=== PATIENT | male | born 1970 | race Caucasian/White ===

== ENCOUNTER 2020-06-23 21:07 | Emergency (ER) | payer OTHER ==
[~2020-06-23] VITALS: Ht 185.4 cm; Wt 112.0 kg
[2020-06-23] MEDS ORDERED: BACTRIM DS TAB1 EACH PO (21:51)
== END 2020-06-23 22:15 | disposition home or self-care (01) ==
LOC: ED 21:07
DX: Q82.8 Other specified congenital malformations of skin (principal); I10 Essential (primary) hypertension; E11.9 Type 2 diabetes mellitus without complications; F17.200 Nicotine dependence, unspecified, uncomplicated
CPT/HCPCS: 99283

== ENCOUNTER 2020-08-27 13:45 | Emergency (ER) | payer OTHER ==
[~2020-08-27] VITALS: Ht 185.4 cm; Wt 112.0 kg
[~2020-08-27 13:45] MED LIST: BACTRIM DS TAB1 EACH PO
[2020-08-27] MEDS ORDERED: HYDROCHLOROTHIA25 MG PO (14:01)
[2020-08-27] MEDS ORDERED: ERYTHROMYCIN1 GM OP (14:01)
[2020-08-27] MEDS ORDERED: METFORMIN HCL500 MG PO (14:01)
[2020-08-27] MEDS ORDERED: LISINOPRIL10 MG PO (14:01)
[2020-08-27] MEDS ORDERED: KEFLEX500 MG PO (14:44)
== END 2020-08-27 15:02 | disposition home or self-care (01) ==
LOC: ED 13:45
DX: H00.012 Hordeolum externum right lower eyelid (principal); I10 Essential (primary) hypertension; E11.9 Type 2 diabetes mellitus without complications; F17.200 Nicotine dependence, unspecified, uncomplicated; Z79.899 Other long term (current) drug therapy; Z79.84 Long term (current) use of oral hypoglycemic drugs
CPT/HCPCS: 99283